=== PATIENT | male | born 1965 | race Caucasian/White ===

== ENCOUNTER 2017-07-20 14:30 | Inpatient (IN) | payer OTHER ==
[~2017-07-20] VITALS: Ht 175.3 cm; Wt 71.7 kg
[2017-07-20 15:42] LABS: BASOPHILS % (AUTO) 0.3 % (0.0-5.0); EOSINOPHILS % (AUTO) 0.6 % (0.0-8.0); HEMATOCRIT 39.5 % (42-54); LYMPHOCYTES % (AUTO) 27.1 % (21.0-51.0); MEAN CORPUSCULAR HEMOGLOBIN 32.8 pg (27.0-33.0); MEAN CORPUSCULAR VOLUME 93.6 fL (79-99); MONOCYTES % (AUTO) 10.4 % (3.0-13.0); NEUTROPHILS % (AUTO) 61.6 % (40.0-77.0); PLATELET COUNT (AUTO) 260 K/uL (130-400); RED BLOOD CELL COUNT(AUTO) 4.21 MIL/uL (4.50-6.20); RED CELL DISTRIBUTION WIDTH 13.1 % (11.0-15.5); WHITE BLOOD COUNT (AUTO) 7.6 K/uL (4.8-10.8)
[2017-07-20 15:46] LABS: APPEARANCE,URINE Clear (CLEAR); BILIRUBIN,URINE Negative (NEGATIVE); COLOR,URINE Yellow (YELLOW); GLUCOSE, URINE (UA) Negative (NEGATIVE); KETONES,URINE Negative (NEGATIVE); LEUKOCYTE ESTERASE ,URINE Negative (NEGATIVE); NITRATE,URINE Negative (NEGATIVE); OCCULT BLOOD,URINE Negative (NEGATIVE); PH,URINE 6.5 (5.0-8.0); PROTEIN,URINE Negative (NEGATIVE); UROBILINOGEN,URINE 0.2 mg/dL (0.2-1.0)
[2017-07-20 15:55] LABS: CREATININE 1.1 mg/dL (0.5-1.5); POTASSIUM 4.5 mmol/L (3.5-5.1)
[2017-07-20 15:58] VITALS: BP 118/66
[2017-07-20 16:03] LABS: INR 0.96 (0.85-1.15); PARTIAL THROMBOPLASTIN TIME 25.7 SEC (26.3-35.5); PROTHROMBIN TIME 10.1 SEC (9.6-11.6)
[2017-07-20] MEDS ORDERED: FLUTICASON PROP NASAL (16:31)
[2017-07-20] MEDS ORDERED: BUDE10.22 IH (16:31)
[2017-07-20] MEDS ORDERED: EPIN0.3P2 IM (16:31)
[2017-07-20] MEDS ORDERED: TRAM-355 PO (16:31)
[2017-07-20] MEDS ORDERED: ALBUTEROL IH (16:31)
[2017-07-20] MEDS ORDERED: SERT50TA12 PO (16:31)
[2017-07-20] MEDS ORDERED: HYDR-3421 PO (16:39)
[2017-07-20] MEDS ORDERED: GLUC-145 PO (16:39)
[2017-07-20] MEDS ORDERED: [UNRECOGNIZED DRUG - OTHER] PO (16:39)
[2017-07-20] MEDS ORDERED: MULTIVITAMIN PO (16:39)
[2017-07-20] MEDS ORDERED: ASCO10007 PO (16:39)
[2017-07-20] MEDS ORDERED: [UNRECOGNIZED DRUG - OTHER] PO (16:39)
[2017-07-21] VITALS (24 sets, daily range): BP systolic 103–151; BP diastolic 55–77
[2017-07-21] MEDS ORDERED: WATER FOR INJECTION,STERILE 20 ML VIAL IJ ONE (08:00)
[2017-07-21] MEDS ORDERED: LACTATED RINGERS 1000ML 1,000 ML IV ONE (10:37)
[2017-07-21] MEDS ORDERED: CEFAZOLIN SODIUM 1 GM VIAL ONE ×2 (10:55→10:56)
[2017-07-21] MEDS ORDERED: KETOROLAC TROMETHAMINE 15MG/ML ONE (10:56)
[2017-07-21] MEDS ORDERED: ACETAMINOPHEN EXTRA STRENGTH 500 MG TABLET ONE (10:56)
[2017-07-21] MEDS ORDERED: TRANEXAMIC ACID 1000MG/10ML IV ONE (10:56)
[2017-07-21] MEDS ORDERED: OXYCODONE HCL 10 MG TAB.SR.12H PO ONE (10:57)
[2017-07-21] MEDS ORDERED: CELECOXIB 200 MG CAP ONE (10:57)
[2017-07-21] MEDS: CEFAZOLIN SODIUM 1 GM VIAL IVP ONE ×2 (11:00→12:10)
[2017-07-21] MEDS ORDERED: METOCLOPRAMIDE 10 MG/2 ML VIAL ONE (11:02)
[2017-07-21] MEDS ORDERED: PROPOFOL 1000 MG/100 ML 0 ML IV ONE (11:14)
[2017-07-21] MEDS ORDERED: FENTANYL CITRATE PF 50 MCG/1 ML 2ML VIAL ONE (11:15)
[2017-07-21] MEDS ORDERED: MIDAZOLAM HCL 1 MG/ML 2ML VIAL ONE (11:15)
[2017-07-21] MEDS ORDERED: PROPOFOL 10 MG/ML 20ML VIAL IV ONE ×2 (11:16→14:10)
[2017-07-21] MEDS ORDERED: BUPIVACAINE/PF 0.5% 30ML VIAL ONE (11:19)
[2017-07-21] MEDS ORDERED: ROPIVACAINE 0.5% 5MG/ML 30ML IJ ONE (11:23)
[2017-07-21] MEDS ORDERED: FENTANYL CITRATE PF 50 MCG/1 ML 5ML AMP IV ONE (11:55)
[2017-07-21] MEDS ORDERED: ROCURONIUM BROMIDE 10MG/1ML 5ML VL ONE (12:15)
[2017-07-21] MEDS ORDERED: FERROUS FUMARATE 324 MG TABLET PO PRN (14:00)
[2017-07-21] MEDS ORDERED: LIDOCAINE HCL-MPF 1% 2ML VIAL IVP PRN (14:00)
[2017-07-21] MEDS ORDERED: POTASSIUM CHLORIDE 20MEQ/100ML 100 ML IV PRN (14:00)
[2017-07-21] MEDS ORDERED: POTASSIUM CHLORIDE 10% ELIXIR 20 MEQ/15 ML UDCUP PO PRN (14:00)
[2017-07-21] MEDS ORDERED: DIPHENHYDRAMINE HCL 25 MG CAPSULE PO PRN (14:00)
[2017-07-21] MEDS ORDERED: DiphenhydrAMINE HCL 50 MG/ML VIAL IVP PRN (14:00)
[2017-07-21] MEDS ORDERED: TEMAZEPAM 15 MG CAPSULE PO PRN (14:00)
[2017-07-21] MEDS ORDERED: TRAMADOL HCL 50 MG TABLET PO PRN (14:00)
[2017-07-21] MEDS ORDERED: PROMETHAZINE HCL 25 MG/ML 1ML AMPULE IM PRN (14:00)
[2017-07-21] MEDS ORDERED: CALCIUM CARBONATE 500 MG TABLET PO PRN (14:00)
[2017-07-21] MEDS ORDERED: DEXAMETHASONE SOD PHOSPHATE 10MG/ML 1ML VIAL ONE (14:09)
[2017-07-21] MEDS ORDERED: GLYCOPYRROLATE 0.2 MG/ML 5 ML VIAL ONE (14:09)
[2017-07-21] MEDS ORDERED: NEOSTIGMINE 5MG/5ML SYR IV ONE (14:09)
[2017-07-21] MEDS ORDERED: SODIUM CHLORIDE 0.9% 10 ML VIAL ONE (14:09)
[2017-07-21] MEDS ORDERED: ONDANSETRON HCL 4 MG/2 ML VIAL ONE (14:09)
[2017-07-21] MEDS ORDERED: PHENYLEPHRINE HCL 10 MG/ML 1ML VIAL IV ONE (14:09)
[2017-07-21] MEDS ORDERED: MEPERIDINE-PF 50 MG/ML SYG ONE (14:38)
[2017-07-21] MEDS: ACETAMINOPHEN 325 MG TAB PO SCH ×2 (15:58→20:28)
[2017-07-21] MEDS: OXYCODONE HCL 5 MG TAB PO PRN (15:59)
[2017-07-21] MEDS: SODIUM CHLORIDE 0.9% 1000ML 1,000 ML IV SCH ×2 (15:59→22:27)
[2017-07-21] MEDS ORDERED: EPINEPHRINE 0.3 MG/0.3 ML PEN IM PRN (16:15)
[2017-07-21] MEDS ORDERED: ALBUTEROL SULFATE 0.083% 2.5 MG/3 ML INH IH PRN (18:00)
[2017-07-21] MEDS: ALBUTEROL SULFATE 0.083% 2.5 MG/3 ML INH IH SCH (18:27)
[2017-07-21] MEDS: CEFAZOLIN SODIUM 1 GM VIAL IVP SCH (18:30)
[2017-07-21] MEDS: BUDESONIDE 0.5 MG/2 ML INH IH SCH (18:35)
[2017-07-21] MEDS ORDERED: CEFAZOLIN 2GM / 50 ML 50 ML IV SCH (19:00)
[2017-07-21] MEDS: ASPIRIN 325 MG TABLET PO SCH (20:29)
[2017-07-21] MEDS: PREGABALIN 25 MG CAP PO SCH (20:30)
[2017-07-21] MEDS: HYDROXYZINE HCL 25 MG TABLET PO SCH (20:30)
[2017-07-21] MEDS: CELECOXIB 200 MG CAP PO SCH (20:30)
[2017-07-21] MEDS: KETOROLAC TROMETHAMINE 15MG/ML IV PRN (23:39)
[2017-07-22] VITALS (7 sets, daily range): BP systolic 91–115; BP diastolic 51–64
[2017-07-22] MEDS: ALBUTEROL SULFATE 0.083% 2.5 MG/3 ML INH IH SCH ×5 (00:47→23:36)
[2017-07-22] MEDS: CEFAZOLIN SODIUM 1 GM VIAL IVP SCH (02:58)
[2017-07-22] MEDS: ACETAMINOPHEN 325 MG TAB PO SCH ×4 (02:58→14:48)
[2017-07-22] MEDS: OXYCODONE HCL 5 MG TAB PO PRN ×2 (03:00→22:10)
[2017-07-22 05:25] LABS: MEAN CORPUSCULAR HGB CONC 34.4 g/dL (32.0-36.0); PLATELET COUNT (AUTO) 184 K/uL (130-400); RED BLOOD CELL COUNT(AUTO) 3.44 MIL/uL (4.50-6.20); RED CELL DISTRIBUTION WIDTH 13.3 % (11.0-15.5); WHITE BLOOD COUNT (AUTO) 7.4 K/uL (4.8-10.8)
[2017-07-22 05:41] LABS: CREATININE 0.8 mg/dL (0.5-1.5); POTASSIUM 3.4 mmol/L (3.5-5.1)
[2017-07-22] MEDS: POTASSIUM CHLORIDE 20 MEQ ERTAB PO PRN ×2 (06:32→08:41)
[2017-07-22] MEDS: SODIUM CHLORIDE 0.9% 1000ML 1,000 ML IV SCH (06:33)
[2017-07-22] MEDS: BUDESONIDE 0.5 MG/2 ML INH IH SCH ×2 (07:12→18:02)
[2017-07-22] MEDS: KETOROLAC TROMETHAMINE 15MG/ML IV PRN (07:47)
[2017-07-22] MEDS: ASCORBIC ACID 500 MG TAB PO SCH (08:40)
[2017-07-22] MEDS: PREGABALIN 25 MG CAP PO SCH ×2 (08:40→19:43)
[2017-07-22] MEDS: MULTIVITAMIN TABLET PO SCH (08:40)
[2017-07-22] MEDS: TAMSULOSIN HCL 0.4 MG CAP.ER.24H PO SCH (08:40)
[2017-07-22] MEDS: ASPIRIN 325 MG TABLET PO SCH ×2 (08:40→19:42)
[2017-07-22] MEDS: SERTRALINE HCL 50 MG TABLET PO SCH (08:40)
[2017-07-22] MEDS: HYDROXYZINE HCL 25 MG TABLET PO SCH ×4 (08:40→19:42)
[2017-07-22] MEDS: CELECOXIB 200 MG CAP PO SCH ×2 (08:40→19:43)
[2017-07-22] MEDS: POLYETHYLENE GLYCOL 3350 17 GM POWD.PACK PO SCH (08:41)
[2017-07-22] MEDS: [UNRECOGNIZED DRUG - OTHER] PO SCH (08:41)
[2017-07-22] MEDS: FLUTICASONE PROPIONATE 50MCG/SPRAY 16 GM BOTTLE EN SCH (08:42)
[2017-07-22] MEDS: PSYLLIUM SEED 1 EACH PACKET PO SCH (12:14)
[2017-07-23] MEDS: ACETAMINOPHEN 325 MG TAB PO SCH ×3 (02:00→16:38)
[2017-07-23 05:05] LABS: HEMATOCRIT 31.1 % (42-54); MEAN CORPUSCULAR HEMOGLOBIN 33.2 pg (27.0-33.0); MEAN CORPUSCULAR HGB CONC 35.6 g/dL (32.0-36.0); MEAN CORPUSCULAR VOLUME 93.2 fL (79-99); PLATELET COUNT (AUTO) 193 K/uL (130-400); RED BLOOD CELL COUNT(AUTO) 3.34 MIL/uL (4.50-6.20); RED CELL DISTRIBUTION WIDTH 13.3 % (11.0-15.5); WHITE BLOOD COUNT (AUTO) 6.3 K/uL (4.8-10.8)
[2017-07-23 05:09] VITALS: BP 138/57
[2017-07-23 05:15] LABS: CREATININE 0.8 mg/dL (0.5-1.5); POTASSIUM 3.7 mmol/L (3.5-5.1)
[2017-07-23] MEDS: ALBUTEROL SULFATE 0.083% 2.5 MG/3 ML INH IH SCH ×3 (06:14→17:53)
[2017-07-23] MEDS: BUDESONIDE 0.5 MG/2 ML INH IH SCH ×2 (06:22→18:12)
[2017-07-23] MEDS: OXYCODONE HCL 5 MG TAB PO PRN (06:50)
[2017-07-23 08:00] VITALS: BP 112/63
[2017-07-23] MEDS: FLUTICASONE PROPIONATE 50MCG/SPRAY 16 GM BOTTLE EN SCH (08:51)
[2017-07-23] MEDS: SERTRALINE HCL 50 MG TABLET PO SCH (08:52)
[2017-07-23] MEDS: HYDROXYZINE HCL 25 MG TABLET PO SCH ×2 (08:52→16:37)
[2017-07-23] MEDS: POLYETHYLENE GLYCOL 3350 17 GM POWD.PACK PO SCH (08:52)
[2017-07-23] MEDS: ASPIRIN 325 MG TABLET PO SCH (08:52)
[2017-07-23] MEDS: CELECOXIB 200 MG CAP PO SCH (08:52)
[2017-07-23] MEDS: ASCORBIC ACID 500 MG TAB PO SCH (08:53)
[2017-07-23] MEDS: MULTIVITAMIN TABLET PO SCH (08:53)
[2017-07-23] MEDS: PREGABALIN 25 MG CAP PO SCH (08:53)
[2017-07-23] MEDS: TAMSULOSIN HCL 0.4 MG CAP.ER.24H PO SCH (08:54)
[2017-07-23] MEDS: [UNRECOGNIZED DRUG - OTHER] PO SCH (08:54)
[2017-07-23] MEDS ORDERED: BISACODYL 5 MG TABLET.DR PO SCH (09:15)
[2017-07-23] MEDS ORDERED: LACTULOSE 20 GM/30 ML UDCUP PO SCH (09:15)
[2017-07-23 11:00] VITALS: BP 90/57
[2017-07-23] MEDS: PSYLLIUM SEED 1 EACH PACKET PO SCH (11:52)
[2017-07-23] MEDS ORDERED: BISACODYL 5 MG TABLET.DR PO PRN (14:00)
[2017-07-23 16:00] VITALS: BP 114/66
[2017-07-23] MEDS ORDERED: HYDR-309 PO (19:22)
[2017-07-23] MEDS ORDERED: ASPI-1012 PO (19:22)
[2017-07-24] MEDS ORDERED: BISACODYL 10 MG SUPP.RECT RC PRN (14:00)
== END 2017-07-23 20:15 | disposition home health service (06) | DRG 470 ==
LOC: EDSTATUS 14:30 → DAHIP 07-21 09:30 → 4BH 07-21 14:38
PROVIDERS: ADMIT Orthopaedic Surgery; ATTEND Orthopaedic Surgery
PROC: 0SR90JZ Replacement of Right Hip Joint with Synthetic Substitute, Open Approach (ICD-10-PCS; principal; 2017-07-21 12:19)
DX: M16.11 Unilateral primary osteoarthritis, right hip (principal); J32.9 Chronic sinusitis, unspecified; M70.61 Trochanteric bursitis, right hip
CPT/HCPCS: 36415; 73503; 80048; 81003; 85025; 85027; 85610; 85730; 88304; 88311; 94640; 94664; A4218; J0690; J1100; J1885; J2175; J2250; J2370; J2405; J2704; J2710; J2765; J2795; J3010; J3490; J7030; J7120

== ENCOUNTER 2017-07-25 06:10 | Emergency (ER) | payer OTHER ==
[~2017-07-25 06:10] MED LIST: ALBUTEROL IH; ASCO10007 PO; ASPI-1012 PO; BUDE10.22 IH; EPIN0.3P2 IM; FLUTICASON PROP NASAL; GLUC-145 PO; HYDR-309 PO; HYDR-3421 PO; MULTIVITAMIN PO; SERT50TA12 PO; [UNRECOGNIZED DRUG - OTHER] PO; [UNRECOGNIZED DRUG - OTHER] PO
[2017-07-25 06:54] LABS: BASOPHILS % (AUTO) 0.3 % (0.0-5.0); EOSINOPHILS % (AUTO) 0.7 % (0.0-8.0); HEMATOCRIT 35.1 % (42-54); LYMPHOCYTES % (AUTO) 19.9 % (21.0-51.0); MEAN CORPUSCULAR HEMOGLOBIN 32.5 pg (27.0-33.0); MEAN CORPUSCULAR HGB CONC 35.1 g/dL (32.0-36.0); MEAN CORPUSCULAR VOLUME 92.6 fL (79-99); MONOCYTES % (AUTO) 13.1 % (3.0-13.0); PLATELET COUNT (AUTO) 278 K/uL (130-400); RED BLOOD CELL COUNT(AUTO) 3.79 MIL/uL (4.50-6.20); RED CELL DISTRIBUTION WIDTH 12.7 % (11.0-15.5); WHITE BLOOD COUNT (AUTO) 8.4 K/uL (4.8-10.8)
[2017-07-25 07:12] LABS: INR 0.89 (0.85-1.15); PARTIAL THROMBOPLASTIN TIME 27.1 SEC (26.3-35.5); PROTHROMBIN TIME 9.4 SEC (9.6-11.6)
[2017-07-25 08:08] LABS: CREATININE 0.8 mg/dL (0.5-1.5); POTASSIUM 3.5 mmol/L (3.5-5.1)
[2017-07-25 08:14] LABS: ALBUMIN 3.3 g/dL (3.5-5.0); BILIRUBIN,TOTAL 0.4 mg/dL (0.2-1.0); TOTAL PROTEIN, SERUM 6.6 g/dL (6.0-8.3)
== END 2017-07-25 09:11 | disposition home or self-care (01) ==
LOC: EDH 06:10
DX: G89.18 Other acute postprocedural pain (principal); M25.551 Pain in right hip; J45.909 Unspecified asthma, uncomplicated; Z96.641 Presence of right artificial hip joint; Z91.030 Bee allergy status
CPT/HCPCS: 36415; 73502; 80053; 85025; 85610; 85730; 93971